=== PATIENT | male | born 1985 | race Caucasian/White ===

== ENCOUNTER 2020-09-26 09:33 | Emergency (ER) | payer MEDICARE ==
[~2020-09-26] VITALS: Ht 165.1 cm; Wt 68.0 kg
[2020-09-26 09:43] VITALS: BP 121/70
[2020-09-26] MEDS ORDERED: CLONAZEPAM2 M1 PO (09:49)
[2020-09-26] MEDS ORDERED: ALLEGRA-D 24 H1 EACH PO (10:05)
[2020-09-26] MEDS ORDERED: FLONASE 0.05%50 MCG NARES (10:05)
== END 2020-09-26 10:16 | disposition home or self-care (01) ==
LOC: M.ERS 09:33
DX: J30.9 Allergic rhinitis, unspecified (principal); F17.210 Nicotine dependence, cigarettes, uncomplicated